=== PATIENT | male | born 1990 | race Caucasian/White ===

== ENCOUNTER 2024-03-11 09:33 | Outpatient (CLI) | payer BC | END 2024-03-11 09:34 | disposition home or self-care (01) | LOC: RAD 09:33 → MERGE 09:33 → RAD 09:34 | PROVIDERS: ATTEND Internal Medicine Hematology & Oncology | DX: C90.00 Multiple myeloma not having achieved remission (principal); D47.2 Monoclonal gammopathy; S42.033A Displaced fracture of lateral end of unspecified clavicle, initial encounter for closed fracture | CPT/HCPCS: 77075 ==